=== PATIENT | female | born 1990 | race Caucasian/White ===

== ENCOUNTER 2021-02-24 14:01 | Emergency (ER) | payer OTHER ==
[2021-02-24 14:21] VITALS: BP 94/66; PULSE 84; BMI 22.4
== END 2021-02-24 15:43 | disposition home or self-care (01) ==
LOC: JERFT 14:01
PROC: 0HQGXZZ Repair Left Hand Skin, External Approach (ICD-10-PCS; principal; 2021-02-24)
DX: S61.412A Laceration without foreign body of left hand, initial encounter (principal); W26.0XXA Contact with knife, initial encounter; Y93.G3 Activity, cooking and baking
CPT/HCPCS: 99282-25